=== PATIENT | male | born 1965 | race African-American/Black ===

== ENCOUNTER 2017-11-13 22:50 | Emergency (ER) | payer SELFPAY ==
[~2017-11-13] VITALS: Ht 180.3 cm; Wt 70.8 kg
[2017-11-13] MEDS ORDERED: cloNIDine HCL 0.1 MG TAB ONE (23:08)
[2017-11-13] MEDS ORDERED: cloNIDine HCL 0.1 MG TAB PO ONE (23:15)
[2017-11-13 23:52] LABS: Basophils # (auto) 0 uL; Basophils % (auto) 1.3 % (0.0-2.0); Eosinophils # (auto) 0.2 uL; Hematocrit 48.2 % (41.0-53.0); Hemoglobin 16.3 g/dL (13.5-17.5); Lymphocytes # (auto) 1.1 uL; Lymphocytes % (auto) 29.7 % (10.0-50.0); Mean Corpuscular Hemoglobin 31.1 pg (28.0-32.0); Mean Corpuscular Hgb Conc. 33.8 g/dL (32.0-36.0); Mean Corpuscular Volume 92.2 fL (80.0-100.0); Monocytes # (auto) 0.4 uL; Monocytes % (auto) 9.9 % (0.0-12.0); Neutrophils % (auto) 53.1 % (37.0-80.0); Platelet Count (auto) 346 10^3/uL (140-450); Red Blood Cells 5.23 10^6/uL (4.5-5.90); Red Cell Distribution Width 13.3 % (11.8-14.3); White Blood Cell 3.7 10^3/uL (4.4-10.8)
[2017-11-14 00:05] LABS: INR 0.95 (0.9-1.15); Prothrombin Time 10.2 sec (9.27-12.13)
[2017-11-14 00:07] LABS: Alanine Aminotransferase 20 U/L (16-61); Albumin 4.1 g/dL (3.4-5.0); Anion Gap 8 (5-15); Aspartate Aminotransferase 14 U/L (15-37); BUN/Creatinine Ratio 12.4; Blood Urea Nitrogen 11 mg/dL (7-18); Calcium 9.1 mg/dL (8.5-10.1); Carbon Dioxide 29 mmol/L (21-32); Chloride 100 mmol/L (98-107); GFR African American 115 mL/min; GFR Non-African American 95 mL/min; Glucose 133 mg/dL (74-106); Potassium 3.2 mmol/L (3.5-5.1); Sodium 137 mmol/L (136-145)
[2017-11-14 00:15] LABS: Alkaline Phosphatase 79 U/L (45-117); Bilirubin, Total 0.8 mg/dL (0.2-1.0); Total Protein 8.4 g/dL (6.4-8.2)
[2017-11-14 01:43] LABS: Urine Bacteria NONE SEEN /hpf (None Seen); Urine Blood 1+ /uL (Negative); Urine Specific Gravity 1.004 (1.001-1.035); Urine WBC 4 /hpf (0 - 3)
[2017-11-14 01:57] LABS: Alcohol, Urine < 3.0 mg/dL (0-5); Amphetamine Screen, Urine NEGATIVE (NEGATIVE); Barbiturate Scree,Urine NEGATIVE (NEGATIVE); Benzodiazephine Screen, Urine NEGATIVE (NEGATIVE); Cannabinoid Screen, Urine NEGATIVE (NEGATIVE); Cocaine Screen, Urine NEGATIVE (NEGATIVE); Opiate Scree,Urine NEGATIVE (NEGATIVE); Phencyclidine Screen, Urine NEGATIVE (NEGATIVE)
[2017-11-14 04:11] VITALS: BP 124/72
== END 2017-11-14 04:12 | disposition home or self-care (01) ==
LOC: ER 22:53
DX: I10 Essential (primary) hypertension (principal)
CPT/HCPCS: 36415; 70450; 71045; 80053; 80307; 81001; 82962; 83880; 84484; 85025; 85610; 85730